=== PATIENT | female | born 1985 | race Caucasian/White ===

== ENCOUNTER 2020-05-26 09:49 | Outpatient (CLI) | payer BC, SELFPAY ==
--- NOTE | 2020-05-26 09:55 | US_ITS ---
WS: [id number] PELVIC ULTRASOUND REASON FOR VISIT: PELVIC PAIN TECHNIQUE: Grayscale and Doppler transabdominal and transvaginal pelvic ultrasound. FINDINGS: No adnexal mass or free fluid in the pelvis. Uterus measures 7.4 cm x 4.5 cm x 3.6 cm, right ovary measures 3.4 cm x 2.6 cm x 2.5 cm, and left ova ry measures 3.0 cm x 2.3 cm x 2.1 cm. There are multiple small ovarian follicular cysts. There is normal blood flow in both ovaries. There are multiple cysts in the cervix the largest of which is a centimeter in diameter. These are an incidental finding. There is some inhomogeneity of the echotexture of the uterus however a definitive leiomyoma is not id entified. Endometrium is echogenic and 6.5 mm in thickness US/US pelvic with transvaginal IMPRESSION: No significant abnormality.
== END 2020-05-26 09:50 | disposition home or self-care (01) ==
LOC: US 09:52
PROVIDERS: PCP Family Medicine; Visit Provider Family Medicine
DX: R10.2 Pelvic and perineal pain (principal)
CPT/HCPCS: 76830; 76856

== ENCOUNTER → 2020-05-29 15:13 | Outpatient (BNVA) | payer BC, SELFPAY | PROVIDERS: PCP Family Medicine; Visit Provider Obstetrics & Gynecology | DX: N93.9 Abnormal uterine and vaginal bleeding, unspecified (principal) | CPT/HCPCS: 82670; 83001; 83002; 84144; 84146 ==

== ENCOUNTER → 2020-06-19 07:44 | Outpatient (BNVA) | payer BC, SELFPAY | PROVIDERS: PCP Family Medicine; Visit Provider Obstetrics & Gynecology | DX: N93.9 Abnormal uterine and vaginal bleeding, unspecified (principal) | CPT/HCPCS: 81025; 84402; 88175; 88305 ==

== ENCOUNTER → 2020-07-24 12:37 | Outpatient (BNVA) | payer BC, SELFPAY | PROVIDERS: PCP Family Medicine; Visit Provider Obstetrics & Gynecology | DX: E28.2 Polycystic ovarian syndrome (principal) | CPT/HCPCS: 81025 ==

== ENCOUNTER → 2020-08-22 15:36 | Outpatient (BNVA) | payer BC, SELFPAY | PROVIDERS: PCP Family Medicine; Visit Provider Obstetrics & Gynecology | DX: Z97.5 Presence of (intrauterine) contraceptive device (principal) | CPT/HCPCS: 76830 ==

== ENCOUNTER → 2021-09-18 15:50 | Outpatient (BNVA) | payer OTHER, BC, SELFPAY | PROVIDERS: PCP Family Medicine; Visit Provider Clinical Nurse Specialist Adult Health | DX: R30.0 Dysuria (principal) | CPT/HCPCS: 81000; 87077; 87086; 87184 ==

== ENCOUNTER 2022-01-05 18:26 | Emergency (ER) | payer OTHER, SELFPAY ==
[2022-01-05 18:37] VITALS: BP 123/86; PULSE 111; RESP 16; TEMP 38.5; O2SAT 95; BMI 39.5
[2022-01-05 20:39] LABS: Rapid Strep A Test Positive (Negative)
[2022-01-05 20:45] LABS: Influenza A by IFA negative (Negative); Influenza B by IFA negative (Negative); SARS Covid-2 Antigen negative (Negative)
[2022-01-05] MEDS: ibuprofen 600 mg Tablet PO (21:12)
--- NOTE | 2022-01-05 21:46 | W.ED.GENADLT ---
HPI - General Adult General: Chief complaint: General Medical Stated complaint: Head pain/congestion, throat swollen Time Seen by Provider: 01/05/22 21:43 History of Present Illness: Patient is a 36-year-old female comes to the ED with sore throat and fever. Symptoms started yesterday. 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 Symptoms are a sore throat, chills, fever and headache. She has not taken any syck-ays-jlavuln medicine for her fever or headache today. Associated symptoms: Reports headache(s); Deny chest pain, dyspnea, nausea, rash, palpitations or vomiting Review of Systems Const: Reports: fever(s) and chills; Denies: fatigue Eyes: Denies: change in vision or eye discomfort ENMT: Reports: throat pain; Denies: odynophagia, nasal discharge or nasal congestion Card: Denies: chest pain, palpitations, edema, swelling of feet/ankles, dyspnea on exertion or orthopnea Resp: Denies: dyspnea, productive cough or non-productive cough GI: Denies: abdominal pain, nausea, vomiting, diarrhea, constipation or hematochezia : Denies: flank pain, dysuria or hematuria Musc: Denies: neck pain, back pain or extremity swelling Skin/Breast: Denies: rash or new lesions Neuro: Reports: headache(s); Denies: numbness in extremities or weakness in extremities PFS ED PFSH: Medical History Mood changes Was placed on medication since January 2020 to help even out her moods and is doing well with this. Does not see a therapist and this is being managed by her primary care provider No pertinent past medical history Denies diabetes, asthma, hypertension, seizures, DVT/PE PCP: Dr. Hayes Surgical History S/P cholecystectomy Laparoscopic procedure in 2011 performed at [facility] [place]. 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 Family History Grandmother Breast cancer paternal, diagnosed in her 50s Diabetes maternal and paternal Father Hypertension Mother Hypertension Hyperlipidemia Thyroid cancer Denies family history of Colon cancer Ovarian cancer Heart disease Uterine cancer Thyroid condition Stroke Physical Exam Const: COMMON NORMALS: patient oriented x3 and alert GENERAL APPEARANCE: cooperative and comfortable HENMT: COMMON NORMALS: normocephalic HEAD & SCALP: normocephalic MOUTH: Normal oral and palatal mucosa present THROAT: uvula midline and posterior oropharynx abnormal erythema and exudates Neck/C-Spine: COMMON NORMALS: supple GENERAL: Yes normal visual inspection Resp: COMMON NORMALS: normal respiratory effort, No retractions, No use of accessory muscles and clear to auscultation bilaterally AUSCULTATION: clear to auscultation bilaterally Cardio: COMMON NORMALS: regular rate, regular rhythm, S1 normal heart sound present, S2 normal heart sound present, No gallops present (Cardio), No clicks present (Cardio), No murmurs present (Cardio) and Peripheral pulses 2+ throughout RATE: regular rate RHYTHM: regular rhythm HEART SOUNDS: S1 normal heart sound present and S2 normal heart sound present PERIPHERAL PULSES: Peripheral pulses 2+ throughout GI: COMMON NORMALS: Normal to inspection, nondistended, normoactive bowel sounds present, Soft to palpation, non-tender and no masses PALPATION: Yes Soft to palpation : COMMON NORMALS: Yes no CVA tenderness BLADDER/KIDNEY EXAM: Yes no CVA tenderness Back/Pelvis: COMMON NORMALS: no CVA tenderness Neuro: COMMON NORMALS: patient oriented x3 SENSORIUM/ORIENTATION: Yes alert GAIT: Yes Normal gait present Skin: GENERAL SKIN EXAM: dry skin Course Vital Signs: Vital signs: Vital Signs Temperature 101.3 F H 01/05/22 18:37 Pulse Rate 111 H 01/05/22 18:37 Respiratory Rate 16 01/05/22 18:37 Blood Pressure 123/86 01/05/22 18:37 Pulse Oximetry 95 01/05/22 18:37 Oxygen Delivery Me thod 01/05/22 18:37 [facility] - General Adult Medical Decision Making Patient is a 36-year-old female comes to the ED with a sore throat, fever and headache. Patient has a temp of 101.3 but the rest of her vitals are stable. Patient appears nontoxic and in no acute distress or pain. She does have some erythema of the posterior oropharynx with some exudates. Strep test was positive. She is given ibuprofen and amoxicillin here in the ED. She was stable for discharge home and told to follow-up with her PCP within the next week for reevaluation. She was sent with a prescription for amoxicillin. Return ED precautions given. Patient understood and agreed with plan. Lab Data I reviewed the patient's lab results. Laboratory Results Influenza Type A Ag negative (Negative) 01/05/22 20:13 Influenza Type B Ag negative (Negative) 01/05/22 20:13 SARS-CoV-2 Ag (Rapid) negative (Negative) 01/05/22 20:13 Group A Strep Rapid Positive (Negative) H 01/05/22 20:13 Discharge Plan Discharge Patient Disposition: Home Clinical Impression: Strep throat Condition: Stable Prescriptions: New amoxicillin 500 mg tablet 500 mg PO BID 10 Days Qty: 20 0RF No Action venlafaxine 37.5 mg capsule,extended release 24hr 37.5 mg PO DAILY Mirena 20 mcg/24 hours (6 yrs) 52 mg intrauterine device 1 device intrauterine .every 5 years Qty: 1 0RF Discharge Orders: Discharge ED (Routine); Ordered 01/05/22 Ordered By: Carlos Fitzpatrick Referrals: Carlos Hayes MD [Primary Care Provider] - Discharge Diet: Regular Discharge Activity: Increase activity as tolerated Patient Instructions: Strep Throat (DC) Activity Restrictions/Additional Instructions: Follow-up with medical provider as directed in the next 5 to 7 days for reevaluation. Take medications as prescribed. Drink plenty fluids and stay hydrated. Take [id number] ibuprofen or Tylenol for any fevers or pain. Return to the ER or your medical provider if condition worsens. Please read and understand discharge instructions. Thank you for choosing [facility] for your healthcare needs today. Please realize this is an emergency room and that we are providing you with a medical screening exam and this may not be complete and all inclusive of all the testing and or work up that you may need to determine your ailment or severity of your illness. It is very important that you follow up as instructed or that you return to the Emergency Department should you have concerns or if your condition changes or worsens in any way. Stand Alone Forms: Work/School Release Coding Level of Care Code ED Supervisor [place] for Fallon Fwjoselin Exam Comprehensive
[2022-01-05] MEDS: amoxicillin 500 mg Capsule PO (21:54)
== END 2022-01-05 22:08 | disposition home or self-care (01) ==
PROVIDERS: Emergency Medicine; Emergency Provider Physician Assistant; PCP Family Medicine
DX: J02.0 Streptococcal pharyngitis (principal); Z20.822 Contact with and (suspected) exposure to COVID-19
CPT/HCPCS: 87426; 87804; 87880; 99283

== ENCOUNTER 2022-05-02 08:29 | Emergency (ER) | payer OTHER, SELFPAY ==
[2022-05-02 08:32] VITALS: BP 132/96; PULSE 86; RESP 14; TEMP 36.4; O2SAT 98; BMI 39.5
--- NOTE | 2022-05-02 08:38 | XR_ITS ---
WS: [id number] Exam: XR chest 1V portable [id number] Date/Time of Exam: 05/02/2022 8:42 AM Reason For Exam: dyspnea/cough No prior exams. Findings: The lungs are clear and fully expanded. Costophrenic angles are sharp. No infiltrates. Bronchovascula r relief appears normal. Cardiac silhouette is unremarkable. Bony elements are intact. XR/XR chest 1V portable [id number] IMPRESSION: Unremarkable chest radiograph.
--- NOTE | 2022-05-02 08:44 | ECG_ITS ---
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 Measurements Intervals [place] Rate: 79 P: 43 TX: 140 QRS: 19 QRSD: 85 T: 29 QT: 380 QTc: 437 Interpretive Statements SINUS RHYTHM No previous ECG available for comparison Electronically Signed On 05-02-2022 22:20:39 [employer]ERMOCOUPLE TE[employer] by Shavonne Talamantes M.D. [id number]
--- NOTE | 2022-05-02 09:09 | ED_ITS ---
HPI - SOB/Dyspnea General: Chief Complaint: Shortness of Breath/Dyspnea Stated Complaint: SOB, abd pain Time Seen by Provider: 05/02/22 08:37 Source: patient Mode of arrival: ambulatory History of Present Illness: HPI Narrative: 36-year-old female presents emergency room complaining of shortness of breath and cough. States her symptoms began 3 days ago progressively worsening since then cough is nonproductive. 2 days ago she was seen in urgent care started on oral prednisone she is still taking that. Mild improvement of her cough since then but with inspiration and coughing the pain in the left lower ribs worsens. She has not been coughing anything up she has not developed any fever no diarrhe a. She has no known history of chronic respiratory illnesses. She has not been started on any beta agonist. MD elicited complaint: shortness of breath Onset (ago): day(s) (3) Timing: constant Severity: mild Exacerbating factors: nothing Relieving factors: nothing Associated symptoms: Reports chest congestion; Deny abdominal pain, chest pain, cough, diaphoresis, dizziness, extremity pain, fever(s), hemoptysis, lightheadedness, myalgias, nausea, orthopnea, palpitations, paresthesias, polydipsia, polyuria, rash, sense of impending doom, syncope or vomiting Treatment prior to arrival: other (Prednisone) Review of Systems Const: Denies: fever(s), chills, fatigue, malaise or diaphoresis ENMT: Denies: throat pain, ear or mastoid pain, nasal discharge or nasal conge stion Card: Denies: chest pain, palpitations, lightheadedness, syncope or orthopnea Resp: Reports: dyspnea, non-productive cough, wheezing and chest congestion; Denies: productive cough or hemoptysis GI: Denies: abdominal pain, nausea or vomiting : Denies: flank pain, difficulty voiding, dysuria, urinary frequency or urinary urgency Musc: Denies: neck pain, back pain or extremity pain Skin/Breast: Denies: rash or pruritus Neuro: Denies: dizziness Endo: Denies: polyuria or polydipsia [facility] ED PFSH: Medical History Mood changes Was placed on medication since January 2020 to help even out her moods and is doing well with this. Does not see a therapist and this is being managed by her primary care provider No pertinent past medical history Denies diabetes, asthma, hypertension, seizures, DVT/PE PCP: Dr. Hayes Surgical History S/P cholecystectomy [place] [facility] [facility] [place] 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 Family History Grandmother Breast cancer paternal, diagnosed in her 50s Diabetes maternal and paternal Father Hypertension Mother Hypertension Hyperlipidemia Thyroid cancer Denies family history of Colon cancer Ovarian cancer Heart disease Uterine cancer Thyroid condition Stroke Physical Exam Const: GENERAL APPEARANCE: cooperative and comfortable ORIENTATION/CONSCIOUSNESS: Yes awake, Yes oriented to person, Yes oriented to place and Yes oriented to time HENMT: COMMON NORMALS: normocephalic, atraumatic and hearing grossly normal bilaterally HEAD & SCALP: normocephalic and atraumatic Chest: OTHER: Chest pain reproducible with deep inspiration cough and to a lesser extent palpation on the left lower chest wall. Resp: COMMON NORMALS: normal respiratory effort, No retractions, No use of accessory muscles and clear to auscultation bilaterally AUSCULTATION: clear to auscultation bilaterally Cardio: COMMON NORMALS: regular rate, regular rhythm and No murmurs present (Cardio) RATE: regular rate RHYTHM: regular rhythm GI: COMMON NORMALS: Soft to palpation and No hepatosplenomegaly present AUSCULTATION: Yes normoactive bowel sounds PALPATION: Yes Soft to palpation, No Tenderness to palpation present (GI), No Guarding due to palpation present (GI) and Yes No hepatosplenomegaly present Extremity: COMMON NORMALS: normal to inspection, capillary refill normal, no clubbing, cyanosis or edema, no calf tenderness and no pedal edema Neuro: SENSORIUM/ORIENTATION: Yes oriented to person, Yes oriented to place and Yes oriented to time Skin: COMMON NORMALS: no rashes or lesions noted GENERAL SKIN EXAM: no rash es or lesions noted Course Vital Signs: Vital signs: Vital Signs Temperature 97.6 F 05/02/22 08:32 Pulse Rate 86 05/02/22 08:32 Respiratory Rate 14 05/02/22 08:32 Blood Pressure 132/96 05/02/22 08:32 Pulse Oximetry 98 05/02/22 08:32 Oxygen Delivery Me thod 05/02/22 08:32 MDM - SOB/Dyspnea Medical Decision Making Labs and imaging reviewed there is no acute infiltrates pneumonia or pneumothorax no evidence of widening mediastinum no abnormalities. No significant abnormalities on labs other than a mild elevation of white count which is likely caused by the steroids. Continue steroids add albuterol supportive cares follow-up as needed return if is further problems Medical Records I reviewed the patient's medical records. Lab Data I reviewed the patient's lab results. 05/02/22 09:10 05/02/22 09:10 Labs/Radiology: Radiology Impressions Chest X-Ray 05/02/22 08:38 IMPRESSION: Unremarkable chest radiograph. Laboratory Results WBC 16.9 10^3/uL (4.0-10.0) H 05/02/22 09:10 RBC 4.78 10^6/uL (4.1-5.3) 05/02/22 09:10 Hgb 13.9 g/dL (11.5-15.3) 05/02/22 09:10 Hct 42.3 % (37.0-47.0) 05/02/22 09:10 MCV 88.5 fl (81-99) 05/02/22 09:10 MCH 29.1 pg (28.0-34.0) 05/02/22 09:10 MCHC 32.9 g/dL (30.0-36.0) 05/02/22 09:10 RDW 13.7 % (12.1-15.1) 05/02/22 09:10 Plt Count 281 10^3/cmm (130-400) 05/02/22 09:10 MPV 10.6 fL (7.4-10.4) H 05/02/22 09:10 Neut % (Auto) 66.7 % 05/02/22 09:10 Lymph % (Auto) 23.9 % 05/02/22 09:10 [place] % (Auto) 6.3 % 05/02/22 09:10 Eos % (Auto) 1.7 % 05/02/22 09:10 Baso % (Auto) 0.4 % 05/02/22 09:10 Neut # (Auto) 11.27 10^3/uL (1.8-7.7) H 05/02/22 09:10 Lymph # (Auto) 4.0 10^3/uL (0.8-4.8) 05/02/22 09:10 [place] # (Auto) 1.1 10^3/uL (0.2-0.9) H 05/02/22 09:10 Eos # (Auto) 0.3 10^3/uL (0.0-0.8) 05/02/22 09:10 Baso # (Auto) 0.1 10^3/uL (0.0-0.1) 05/02/22 09:10 Nucleated RBC % (auto) 0 % 05/02/22 09:10 Nucleated RBCs # 0.0 /100WBC 05/02/22 09:10 Sodium 142 mmol/L (136-145) 05/02/22 09:10 Potassium 3.9 mmol/L (3.5-5.1) 05/02/22 09:10 Chloride 107 mmol/L (98-107) 05/02/22 09:10 Carbon Dioxide 25 mmol/L (22-29) 05/02/22 09:10 Anion Gap 13.9 (5-19) 05/02/22 09:10 BUN 12 mg/dL (6-20) 05/02/22 09:10 Creatinine 0.8 mg/dL (0.5-0.9) 05/02/22 09:10 GFR Calculation 81.6 mL/min (90-130) L 05/02/22 09:10 Glucose 92 mg/dL (65-115) 05/02/22 09:10 Calculated Osmolality 293 mOsm/kg (285-295) 05/02/22 09:10 Calcium 8.4 mg/dL (8.5-10.5) L 05/02/22 09:10 Total Bilirubin 0.2 mg/dL (0.15-1.2) 05/02/22 09:10 AST 14 U/L (0-32) 05/02/22 09:10 ALT 19 U/L (0-33) 05/02/22 09:10 Alkaline Phosphatase 76 U/L (35-105) 05/02/22 09:10 Total Protein 6.7 g/dL (6.6-8.7) 05/02/22 09:10 Albumin 3.2 g/dL (3.5-5.2) L 05/02/22 09:10 Globulin 3.5 g/dL (1.3-4.6) 05/02/22 09:10 Discharge Plan Discharge Patient Disposition: Home Clinical Impression: Viral URI with cough Condition: Stable Prescriptions: New albuterol sulfate 90 mcg/actuation HFA aerosol inhaler 2 inh INHALATION Q4H PRN (Reason: shortness of breath or wheezing) Qty: 18 0RF No Action venlafaxine 37.5 mg capsule,extended release 24hr 37.5 mg PO DAILY Mirena 20 mcg/24 hours (6 yrs) 52 mg intrauterine device 1 device intrauterine .every 5 years Qty: 1 0RF prednisone 20 mg tablet 40 mg PO DAILY 5 Days Qty: 10 0RF fluticasone propionate [Flonase Allergy Relief] 50 mcg/actuation spray,suspension 1 spray intranasal BID Qty: 16 2RF Rx Instructions: administer into each nostril Zyrtec 10 mg capsule 10 mg PO DAILY Qty: 30 2RF Discharge Orders: Discharge ED (Routine); Ordered 05/02/22 Ordered By: Fredi Villatoro Referrals: Carlos Hayes MD [Primary Care Provider] - Discharge Diet: Usual diet Discharge Activity: Increase activity as tolerated Patient Instructions: Opioid Safety, Pain Management Activity Restrictions/Additional Instructions: You are seen today for an upper respiratory infection with cough. Your oxygen sats are normal your chest x-ray did not show any acute infiltrate. Recommend you continue the steroids add albuterol 2 puffs every 4 hours as needed. If symptoms worsen or change recheck with your primary care doctor Coding Level of Care Code ED Vaccine Customer Representative for Fallon Addison
[2022-05-02 09:22] LABS: Basophils # 0.1 10^3/uL (0.0-0.1); Basophils % 0.4 %; Eosinophils # 0.3 10^3/uL (0.0-0.8); Eosinophils % 1.7 %; Hematocrit 42.3 % (37.0-47.0); Hemoglobin 13.9 g/dL (11.5-15.3); Lymphocytes % 23.9 %; Mean Corpuscular HGB Conc 32.9 g/dL (30.0-36.0); Mean Corpuscular Hemoglobin 29.1 pg (28.0-34.0); Mean Corpuscular Volume 88.5 fl (81-99); Mean Platelet Volume 10.6 fL (7.4-10.4); Monocytes # 1.1 10^3/uL (0.2-0.9); Monocytes % 6.3 %; Neutrophils # 11.27 10^3/uL (1.8-7.7); Neutrophils % 66.7 %; Nucleated Red Blood Cells % 0 %; Platelet Count 281 10^3/cmm (130-400); Red Blood Count 4.78 10^6/uL (4.1-5.3); Red Cell Distribution Width 13.7 % (12.1-15.1); White Blood Count 16.9 10^3/uL (4.0-10.0)
[2022-05-02 09:37] LABS: Alanine Aminotransferase 19 U/L (0-33); Albumin Level 3.2 g/dL (3.5-5.2); Alkaline Phosphatase 76 U/L (35-105); Anion Gap 13.9 (5-19); Aspartate Amino Transferase 14 U/L (0-32); Blood Urea Nitrogen 12 mg/dL (6-20); Calcium 8.4 mg/dL (8.5-10.5); Carbon Dioxide 25 mmol/L (22-29); Chloride 107 mmol/L (98-107); Globulin 3.5 g/dL (1.3-4.6); Glomerular Filtration Rate 81.6 mL/min (90-130); Glucose 92 mg/dL (65-115); Osmolality Calculated 293 mOsm/kg (285-295); Potassium 3.9 mmol/L (3.5-5.1); Sodium 142 mmol/L (136-145); Total Bilirubin 0.2 mg/dL (0.15-1.2); Total Protein 6.7 g/dL (6.6-8.7)
== END 2022-05-02 10:40 | disposition home or self-care (01) ==
PROVIDERS: Emergency Provider Family Medicine; PCP Family Medicine
DX: J06.9 Acute upper respiratory infection, unspecified (principal)
CPT/HCPCS: 71045; 80053; 85025; 93005; 99285

== ENCOUNTER → 2022-06-03 13:37 | Outpatient (BNVA) | payer OTHER, SELFPAY | PROVIDERS: PCP Family Medicine; Visit Provider Family Medicine | DX: Z51.81 Encounter for therapeutic drug level monitoring (principal); Z13.220 Encounter for screening for lipoid disorders; J02.0 Streptococcal pharyngitis; R45.86 Emotional lability; E28.2 Polycystic ovarian syndrome; F32.A Depression, unspecified | CPT/HCPCS: 80053; 80061; 85025 ==

== ENCOUNTER → 2022-07-24 15:30 | Outpatient (BNVA) | payer OTHER, SELFPAY | PROVIDERS: PCP Family Medicine; Visit Provider Obstetrics & Gynecology | DX: R10.2 Pelvic and perineal pain (principal) | CPT/HCPCS: 76830 ==

== ENCOUNTER 2022-08-14 12:38 | Observation (INO) | payer OTHER, SELFPAY ==
[2022-08-13 09:33] VITALS: BMI 39.0
--- NOTE | 2022-08-13 09:49 | ANES.PREANE2 ---
Pre-Anesthetic Assessment Height/Weight: Height 1.68 m Weight 109.769 kg Operation Date: 08/14/22 10:05 Proposed Procedures p Total Vaginal Hysterectomy 64183 R10.2 G89.29(Not Applicable) - Mitchel Bynum MD Familial anesthetic complications: None Social No alcohol and No tobacco Exam alert, oriented x 3, clear to auscultation bilaterally and regular rate & rhythm Airway Mallampati: Class III Dentition: full Metabolic Morbid Obesity Anesthetic Plan ASA status: 2 Anesthesia: General Risk of > 500 ml blood loss (7ml/kg in children): No Medications/Allergies Home Medications Medication Instructions Recorded Confirmed Last Taken Type levonorgestrel 21 mcg/24 hours (8 1 device intrauterine .every 5 07/24/20 08/13/22 Unknown Rx yrs) 52 mg intrauterine device years #1 ea (Mirena) venlafaxine 75 mg capsule,extended 75 mg PO DAILY #30 caps 06/03/22 08/13/22 08/12/22 Rx release 24 hr Allergies Allergy/AdvReac Type Severity Reaction Status Date / Time No Known Allergies Allergy Verified 08/13/22 09:29 [facility] Anesthesia Medical History Mood changes Was placed on medication since January 2020 to help even out her moods and is doing well with this. Does not see a therapist and this is being managed by her primary care provider No pertinent past medical history Denies diabetes, asthma, hypertension, seizures, DVT/PE PCP: Dr. Hayes Surgical History S/P cholecystectomy Laparoscopic procedure in 2011 [place] [facility] [place] 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
[2022-08-13 09:51] LABS: OR HCG Qualitative Urine Negative (Negative)
[2022-08-13 10:03] LABS: Basophils # 0.1 10^3/uL (0.0-0.1); Basophils % 0.7 %; Eosinophils # 0.2 10^3/uL (0.0-0.8); Eosinophils % 2.6 %; Hematocrit 42.8 % (37.0-47.0); Hemoglobin 14.5 g/dL (11.5-15.3); Lymphocytes # 2.2 10^3/uL (0.8-4.8); Lymphocytes % 23.4 %; Mean Corpuscular HGB Conc 33.9 g/dL (30.0-36.0); Mean Corpuscular Hemoglobin 29.7 pg (28.0-34.0); Mean Corpuscular Volume 87.5 fl (81-99); Mean Platelet Volume 10.7 fL (7.4-10.4); Monocytes # 0.5 10^3/uL (0.2-0.9); Monocytes % 5.4 %; Neutrophils # 6.32 10^3/uL (1.8-7.7); Neutrophils % 67.6 %; Nucleated Red Blood Cells % 0 %; Platelet Count 322 10^3/cmm (130-400); Red Blood Count 4.89 10^6/uL (4.1-5.3); Red Cell Distribution Width 13.6 % (12.1-15.1); White Blood Count 9.4 10^3/uL (4.0-10.0)
[2022-08-13 10:23] LABS: Alanine Aminotransferase 21 U/L (0-33); Albumin Level 3.6 g/dL (3.5-5.2); Alkaline Phosphatase 80 U/L (35-105); Anion Gap 13.1 (5-19); Aspartate Amino Transferase 16 U/L (0-32); Blood Urea Nitrogen 9 mg/dL (6-20); Calcium 8.4 mg/dL (8.5-10.5); Carbon Dioxide 26 mmol/L (22-29); Chloride 106 mmol/L (98-107); Globulin 3.3 g/dL (1.3-4.6); Glomerular Filtration Rate 113.8 mL/min (90-130); Glucose 96 mg/dL (65-115); Osmolality Calculated 291 mOsm/kg (285-295); Potassium 4.1 mmol/L (3.5-5.1); Sodium 141 mmol/L (136-145); Total Bilirubin 0.3 mg/dL (0.15-1.2); Total Protein 6.9 g/dL (6.6-8.7)
[2022-08-13 10:31] LABS: Add Urine Culture? No; Add Urine Microscopic? YES; Bacteria Urine TRACE /hpf; Bilirubin Urine Neg (Negative); Blood Urine Neg (Negative); Glucose Urine UA Norm (Normal); Ketones Urine Negative (Negative); Leukocyte Esterase Urine Negative (Negative); Nitrate Urine Negative (Negative); Protein Urine Neg (Negative); RBC Urine 0-4 /hpf (0-2); Specific Gravity, Urine 1.025 (1.005-1.030); Urine Appearance SL Hazy (CLEAR); Urine Color Yellow (Yellow); Urobilinogen Urine Norm (Negative); WBC Urine 0-4 /hpf (0-5); pH Urine 5 (5-7)
[2022-08-14] VITALS (15 sets, daily range): BP systolic 93–159; BP diastolic 50–101; PULSE 76–94; RESP 10–18; TEMP 36.2–36.7; O2SAT 94–99
[2022-08-14] MEDS: sodium chloride 0.9% 500 ML IV (08:33)
[2022-08-14] MEDS: sodium chloride 0.9% 1,000 ML 30 ML IV (08:33)
[2022-08-14] MEDS: scopolamine 1.5 Patch 1 PATCH TRANSDERMA (08:33)
--- NOTE | 2022-08-14 08:55 | P.ANESUD_ITS ---
Pre-Anesthetic Update Pre-Anesthetic Assessment: Date of Surgery/Procedure: 08/14/22 Preop Talia gnosis: Chronic pelvic pain, dyspareunia, stress urinary incontinence Proposed Procedure: Operation Date: 08/14/22 10:05 Proposed Procedures p Total Vaginal Hysterectomy 78632 R10.2 G89.29(Not Applicable) - Mitchel Bynum MD Any changes to Pre-Anesthetic Assessment?: No Last Intake: Intake Last Liquid Date 08/13/22 Last Liquid Time 22:30 Last Solid Date 08/13/22 Last Solid Time 22:30 Labs Last 48hrs: Short CBC 08/13/22 Range/Units 09:35 WBC 9.4 (4.0-10.0) 10^3/ uL Hgb 14.5 (11.5-15.3) g/dL Hct 42.8 (37.0-47.0) % MCV 87.5 (81-99) fl Plt Count 322 (130-400) 10^3/c mm Neut % (Auto) 67.6 % Neut # (Auto) 6.32 (1.8-7.7) 10^3/u L BMP 08/13/22 09:35 Sodium 141 Potassium 4.1 Chloride 106 Carbon Dioxide 26 BUN 9 Creatinine 0.6 Glucose 96 Calcium 8.4 L Liver Function 08/13/22 Range/Units 09:35 Total Bilirubin 0.3 (0.15-1.2) mg/dL AST 16 (0-32) U/L ALT 21 (0-33) U/L Alkaline Phosphata se 80 (35-105) U/L Albumin 3.6 (3.5-5.2) g/dL Urine 08/13/22 Range/Units 09:29 Urine Color Yellow (Yellow) Urine Appearance Sl hazy A (CLEAR) Urine pH 5 (5-7) Ur Specific Gravit y 1.025 (1.005-1.030) Urine Protein Neg (Negative) Urine Glucose (UA) Norm (Normal) Urine Ketones Negative (Negative) Urine Nitrate Negative (Negative) Urine Bilirubin Neg (Negative) Ur Leukocyte Margarita ase Negative (Negative) Urine RBC 0-4 H (0-2) /hpf Urine WBC 0-4 H (0-5) /hpf Blood Bank 08/13/22 09:35 Blood Type O Positive Rho(D) Type Positive Antibody Screen Negative Vitals: Temperature 97.1 F L 08/14/22 08:11 Temperature Source Temporal Artery S can 08/14/22 08:11 Pulse Rate 80 08/14/22 08:11 Respiratory Rate 16 08/14/22 08:11 Blood Pressure 159/101 08/14/22 08:11 Blood Pressure Catherine n 120 08/14/22 08:11 Pulse Oximetry 97 08/14/22 08:11 Oxygen Delivery Me thod Room Air 08/14/22 08:24 Exam: Pre-Anes Outpt Exam: alert, oriented x 3, clear to auscultation bilaterally and regular rate & rhythm Cardiac Studies: No Data to Display
--- NOTE | 2022-08-14 10:16 | W.PM.OPSUD ---
Surgery/Procedure H&P Update DATE OF PROCEDURE: August 14, 2022 DATE H&P PERFORMED: 08/12/22 H&P UPDATE INFORMATION: I have reviewed H&P completed within last 30 days, I have examined patient prior to procedure and No changes to prior documentation PREOP DIAGNOSIS: Chronic pelvic pain, dyspareunia, stress urinary incontinence PLANNED PROCEDURE: Operation Date: 08/14/22 10:05 Proposed Procedures p Total Vaginal Hysterectomy 15633 R10.2 G89.29(Not Applicable) - Mitchel Bynum MD
[2022-08-14] MEDS: ceFOXitin 2,000 MG in sodium chloride 0.9% (plus) 50 ML 100 MG IV (10:29)
[2022-08-14] MEDS: lidocaine-epi 2% 20 mL INJ 18 ML INJECTION (11:59)
--- NOTE | 2022-08-14 12:20 | PC.NURSE ---
Pt arrived to PACU, awake, resting comfortably, able to move all extremities. Peripad in place with no drainage noted at this time. Tilley catheter patent and draining. SCD's in place and running.
--- NOTE | 2022-08-14 12:30 | P.OP_ITS ---
Operative Report Date of procedure: August 14, 2022 Pre-op diagnosis: Preop Diagnosis Chronic pelvic pain, dyspareunia, stress urinary incontinence Post-op diagnosis: Same as above Procedure done: Total vaginal hysterectomy. Single incision mid urethral sling. Surgeon: Mitchel Bynum MD Estimated blood loss (mL): 100 IV fluids (mL): 1,200 Urine output (mL): 200 Complications: None Procedure: After informed consent and risks, benefits, indications and alternatives reviewed with the patient was taken to the operating room. The patient was placed in dorsal lithotomy position prepped, and draped in the usual sterile fashion. The pre-procedure timeout verifying the correct patient, procedure, site and side, could not requirements was performed and acknowledge by the OR team. A Tilley catheter was placed. A Bookwalter vaginal retractor was placed into the vagina in usual manner visualize the cervix. Cervix was grasped with a single tooth tenaculum and circumferentially infiltrated with 2% lidocaine with epinephrine. Then cervix was circumferentially incised with bovie and the bladder was dissected off the pubovesical cervical fascia anteriorly with a sponge stick and Metzenbaum scissors. The anterior peritoneal reflection was identified and the anterior cul-de-sac was entered sharply with Metzenbaum scissors. The same procedure was performed posteriorly and a posterior colpotomy was made through the posterior cul-de-sac space without difficulty and the posterior blade of the Bookwalter vaginal retractor was advanced posteriorly into the cul-de-sac. At this time, the left and right uterosacral ligaments were isolated and ligated with 0 Vicryl. The Enseal device was placed over the uterosacral ligaments on either side and was then used in a serial fashion up through the cardinal ligaments bilaterally cross-clamped, cut, and sealed with the Enseal device. Finally, the uterine arteries were cross-clamped, cut, sealed and ligated with the Enseal device. Hemostasis was assured. The broad ligaments were then serially clamped, sealed and cut with the Enseal device on both sides. Excellent hemostasis was visualized. Both cornua were clamped, sealed and cut with the Enseal device. Then the pedicles were then suture ligated with excellent hemostasis. The uterus was excised and submitted for pathologic evaluation. No other abnormalities were noted in the pelvic cavity. Surgi-Mark was applied to all help hemostasis of the edge oozing. The peritoneum was then closed in a pursestring fashion with 0 Vicryl suture. The vaginal cuff angles were closed with [id number] #0 Vicryl suture on both sides and transfixed with the ipsilateral cardinal and uterosacral ligaments. The remainder of the vaginal cuff was closed with #0 Vicryl in a running locked fashion. Then proceeded to perform the single incision mid urethral sling. The anterior vaginal mucosa beneath the midurethra was infiltrated with 0.5% Marcaine with epinephrine. A vertical midline incision was made beneath the midurethra, nearly 1.5 cm length. Careful submucosal dissection was performed bilaterally up to the interior portion of the inferior pubic ramus. The insertion of adductor longus tendon on the patient?s pubic ramus was identified as reference land sera. Palpated the notch along the internal edge of ischi opubic ramus where the adductor longus tendon and the inferior pubic ramus meet. The Altis single incision sling (SIS) was selected. Then the needle of the SIS inserted aiming at the location of this notch. One of the integrated self- fixating tips place onto the needle by sliding it over the end of the needle. The needle/sling assembly was inserted toward the location of identified reference notch making sure that the flat of the handle is perpendicular to the desired path. The needle was tracked along the posterior surface of the ischiopubic ramus until the midline sera on the mesh is approximately at the midline position under the urethra. The needle was removed and the same was repeated on the contralateral side until the appropriate sling tension under the urethra was achieved ensuring that the mesh lays flat. The needle was removed and vaginal incision was closed in a running interlocking fashion with 2-0 Vicryl. Then the Tilley catheter was removed and cystoscope was inserted. The bladder was filled with sterile water. Complete evaluation of the bladder mucosa was performed noting no lacerations, dimpling, tears, bleeding of the mucosa or muscular layers. Both ureteral orifices were identified. Prompt excretion of urine from both ureteral orifices was noted. Cystoscope was withdrawn. Tilley catheter was then placed yielding clear francesco urine. The patient was taken out of dorsal lithotomy position and awakened from the general anesthesia. The patient tolerated the procedure well and was taken to the PACU recovery room in a stable condition. Sponge, lap, needle and instruments counts were correct x3.
[2022-08-14] MEDS: ketorolac 30 mg/mL INJ IVP ×2 (13:06→19:33)
[2022-08-14] MEDS: HYDROcodone-acetaminophen 5-325 mg Tablet PO ×2 (13:06→21:17)
[2022-08-14] MEDS: ondansetron 2 mg/ML SDV 2 mL 4 MG IVP (13:06)
--- NOTE | 2022-08-14 17:00 | ANE.PACU2 ---
Inpatient post-anesthesia follow up: Airway intact: Yes Vital signs: Temperature 98.2 F Pulse Rate 75 Respiratory Rate 16 Blood Pressure 105/86 Pulse Oximetry 97 Oxygen Delivery Me thod Room Air Oxygen Flow Rate 2 Fraction of Inspir ed Oxygen Hydration adequate: Yes Nausea and vomiting: No Pain level: 2 Mental status: Baseline
[2022-08-14] MEDS: acetaminophen 325 mg Tablet 650 MG PO (17:48)
[2022-08-14] MEDS: docusate sodium 100 mg Capsule PO (17:49)
[2022-08-14] MEDS: dextrose 5%-lactated ringers 1,000 ML 125 ML IV (18:07)
[2022-08-14] MEDS: simethicone 80 mg Chew PO (19:33)
[2022-08-15] MEDS: dextrose 5%-lactated ringers 1,000 ML 125 ML IV (02:07)
[2022-08-15] MEDS: ketorolac 30 mg/mL INJ IVP (02:07)
[2022-08-15 04:00] VITALS: BP 104/64; PULSE 79; RESP 16; TEMP 36.8; O2SAT 97
[2022-08-15 05:52] LABS: Hematocrit 35.4 % (37.0-47.0); Hemoglobin 12.1 g/dL (11.5-15.3); Mean Corpuscular HGB Conc 34.2 g/dL (30.0-36.0); Mean Corpuscular Hemoglobin 30.1 pg (28.0-34.0); Mean Corpuscular Volume 88.1 fl (81-99); Mean Platelet Volume 10.8 fL (7.4-10.4); Platelet Count 288 10^3/cmm (130-400); Red Blood Count 4.02 10^6/uL (4.1-5.3); Red Cell Distribution Width 13.6 % (12.1-15.1); White Blood Count 21.2 10^3/uL (4.0-10.0)
[2022-08-15] MEDS: HYDROcodone-acetaminophen 5-325 mg Tablet PO (05:52)
[2022-08-15] MEDS: simethicone 80 mg Chew PO (05:52)
--- NOTE | 2022-08-15 06:54 | PC.NURSE ---
Patient voided 100 mL in standard toilet. Post Void Residual scanned 37mL.
[2022-08-15] MEDS: docusate sodium 100 mg Capsule PO (07:04)
--- NOTE | 2022-08-15 09:00 | PC.NURSE ---
this nurse attempted to give IV toradol at 0851, this nurse vanessa up the medication into 3mL syringe and then with saline flush, flushed the IV with the saline, then attempted to give toradol, IV infiltrated. this nurse wasted the toradol into the biohazard bin in the pt room. IV then removed from pt and put into the biohazard box.
--- NOTE | 2022-08-15 09:09 | PM.OBGYDC ---
Discharge Providers [employer] Date of Admission: 08/14/22 12:38 Date of Discharge: 08/15/22 Attending Provider at Admission: Mitchel Bynum MD Attending Provider at Discharge: Mitchel Bynum MD Primary [employer]: Mitchel Bynum MD Primary Care Provider: Carlos Hayes MD Diagnoses at Discharge Discharge Diagnosis (1) Status post vaginal hysterectomy: Status: Acute Reason for Visit Reason for Visit: G89.29 Brief History: Ms. Altamirano is a 36 year old with a history of chronic pelvic pain, dysmenorrhea, and stress urinary incontinence. Hospital Course Hospital Course Ms. Altamirano is a 36 year old , admitted for planned total vaginal hysterectomy and single incision mid urethral sling. The procedures were performed without complication. Overnight observation uneventful. She is afebrile and hemodynamically stable postoperative day 1. PVR within normal limits. Tolerating diet well. Ambulating without difficulty. Patient was counseled regarding pelvic rest for 6 weeks (no sex, no tampons, no vaginal douches). Return to the emergency room if any fever, increased bleeding or pain. Physical Exam Narrative: GA: Alert and oriented ?3. HEENT: WNL. Heart: Regular rate and rhythm. Lungs: Clear to auscultation bilaterally. Abdomen: Bowel sounds present, nontender. 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 Extremities: No edema, no cyanosis, no calves pain. Urinary Catheter Management: Tilley: Cath Placed During This Visit: yes, but has since been removed by the nurse Reason for Continuing Indwelling Catheter: Decision to DC Catheter Urinary Catheter Date of Insertion: 08/14/22 Urinary Catheter Time of Insertion: 10:52 Date Urinary Catheter Removed: 08/15/22 Time Urinary Catheter Discontinued: 05:58 History History History 1 Term 1 0 Miscarriages/Ectopic 0 Living Children 1 Discharge Data Studies Completed and Pending Pending at discharge Category Date Time Status Pathology: Surgical [PTH] Routine Pth 08/14/22 11:46 Received Laboratory Results WBC 21.2 10^3/uL (4.0-10.0) H 08/15/22 05:30 RBC 4.02 10^6/uL (4.1-5.3) L 08/15/22 05:30 Hgb 12.1 g/dL (11.5-15.3) 08/15/22 05:30 Hct 35.4 % (37.0-47.0) L 08/15/22 05:30 MCV 88.1 fl (81-99) 08/15/22 05:30 MCH 30.1 pg (28.0-34.0) 08/15/22 05:30 MCHC 34.2 g/dL (30.0-36.0) 08/15/22 05:30 RDW 13.6 % (12.1-15.1) 08/15/22 05:30 Plt Count 288 10^3/cmm (130-400) 08/15/22 05:30 MPV 10.8 fL (7.4-10.4) H 08/15/22 05:30 Neut % (Auto) 67.6 % 08/13/22 09:35 Lymph % (Auto) 23.4 % 08/13/22 09:35 Kane % (Auto) 5.4 % 08/13/22 09:35 Eos % (Auto) 2.6 % 08/13/22 09:35 Baso % (Auto) 0.7 % 08/13/22 09:35 Neut # (Auto) 6.32 10^3/uL (1.8-7.7) 08/13/22 09:35 Lymph # (Auto) 2.2 10^3/uL (0.8-4.8) 08/13/22 09:35 Kane # (Auto) 0.5 10^3/uL (0.2-0.9) 08/13/22 09:35 Eos # (Auto) 0.2 10^3/uL (0.0-0.8) 08/13/22 09:35 Baso # (Auto) 0.1 10^3/uL (0.0-0.1) 08/13/22 09:35 Nucleated RBC % (auto) 0 % 08/13/22 09:35 Nucleated RBCs # 0.0 /100WBC 08/13/22 09:35 Sodium 141 mmol/L (136-145) 08/13/22 09:35 Potassium 4.1 mmol/L (3.5-5.1) 08/13/22 09:35 Chloride 106 mmol/L (98-107) 08/13/22 09:35 Carbon Dioxide 26 mmol/L (22-29) 08/13/22 09:35 Anion Gap 13.1 (5-19) 08/13/22 09:35 BUN 9 mg/dL (6-20) 08/13/22 09:35 Creatinine 0.6 mg/dL (0.5-0.9) 08/13/22 09:35 GFR Calculation 113.8 mL/min (90-130) 08/13/22 09:35 Glucose 96 mg/dL (65-115) 08/13/22 09:35 Calculated Osmolality 291 mOsm/kg (285-295) 08/13/22 09:35 Calcium 8.4 mg/dL (8.5-10.5) L 08/13/22 09:35 Total Bilirubin 0.3 mg/dL (0.15-1.2) 08/13/22 09:35 AST 16 U/L (0-32) 08/13/22 09:35 ALT 21 U/L (0-33) 08/13/22 09:35 Alkaline Phosphatase 80 U/L (35-105) 08/13/22 09:35 Total Protein 6.9 g/dL (6.6-8.7) 08/13/22 09:35 Albumin 3.6 g/dL (3.5-5.2) 08/13/22 09:35 Globulin 3.3 g/dL (1.3-4.6) 08/13/22 09:35 Urine Color Yellow (Yellow) 08/13/22 09:29 Urine Appearance Sl hazy (CLEAR) A 08/13/22 09:29 Urine pH 5 (5-7) 08/13/22 09:29 Ur Specific [place] 1.025 (1.005-1.030) 08/13/22 09:29 Urine Protein Neg (Negative) 08/13/22 09:29 Urine Glucose (UA) Norm (Normal) 08/13/22 09:29 Urine Ketones Negative (Negative) 08/13/22 09:29 Urine Blood Neg (Negative) 08/13/22 09:29 Urine Nitrate Negative (Negative) 08/13/22 09:29 Urine Bilirubin Neg (Negative) 08/13/22 09:29 Urine Urobilinogen Norm mg/dL (Negative) 08/13/22 09:29 Ur Leukocyte Esterase Negative (Negative) 08/13/22 09:29 Urine RBC 0-4 /hpf (0-2) H 08/13/22 09:29 Urine WBC 0-4 /hpf (0-5) H 08/13/22 09:29 Ur Squamous Epith Cells 5-10 /hpf (0-5) H 08/13/22 09:29 Amorphous Sediment Not Reportable 08/13/22 09:29 Urine Bacteria Trace /hpf (NONE) 08/13/22 09:29 Urine HCG, Qual Negative (Negative) 08/13/22 09:46 Blood Type O Positive 08/13/22 09:35 Rho(D) Type Positive 08/13/22 09:35 Antibody Screen Negative 08/13/22 09:35 Vitals Last Vital Signs Temp 98.2 F 08/15/22 04:00 Pulse 79 08/15/22 04:00 Resp 16 08/15/22 04:00 BP 104/64 08/15/22 04:00 Pulse Ox 97 08/15/22 04:00 O2 Del Method Room Air 08/15/22 04:00 O2 Flow Rate 2 08/14/22 12:25 Discharge Plan Discharge Patient Disposition: Home Condition: Stable Prescriptions: New hydrocodone-acetaminophen 5-325 mg tablet 1 tab PO Q4H PRN (Reason: pain) Qty: 20 0RF acetaminophen 325 mg capsule 325 mg PO Q4H PRN (Reason: fever or pain) Qty: 60 0RF docusate sodium [Colace] 100 mg capsule 100 mg PO BID Qty: 60 0RF ibuprofen 800 mg tablet 800 mg PO TID PRN (Reason: pain) Qty: 60 0RF Continued venlafaxine 75 mg capsule,extended release 24hr 75 mg PO DAILY Qty: 30 6RF Discontinued Mirena 20 mcg/24 hours (6 yrs) 52 mg intrauterine device 1 device intrauterine .every 5 years Qty: 1 0RF Discharge Orders: Discharge Order (Routine); Ordered 08/15/22 Ordered By: Mitchel Bynum Referrals: Mitchel Bynum MD [Physician] - 2 weeks (Your follow up appointment is 08/27/2022 @ 1:30 p.m. with ) Patient Instructions: Hydrocodone/Acetaminophen (By mouth), Bladder Sling for Women (GEN), Vaginal Hysterectomy (GEN), Opioid Safety Activity Restrictions/Additional Instructions: 1. Please call [facility] on next working day to make your post-operative appointment in 2 weeks. 2. Please stay home until you come back to the clinic on first post-hospatilization check up. 3. Please follow instructions on your medications CAREFULLY. 4. If you have abdominal incision, do not cover it unless dressing is necessary because of drainage. OK to shower, but avoid bath. Leave steri-strips until they fall off. If they are still on one week after surgery, you may remove them. 5. If you had vaginal surgery or vaginal repair, Dr. Bynum may instruct you to take SITZ bath. 6. Yellow, blood tinged odorous vaginal discharge is usually normal after hysterectomy or vaginal surgeries. 7. No SEXUAL INTERCOURSE, tampons, or douches until you are completely released from the post-operative care. 8. Avoid constipation by eating right and maybe using some Metamucil or Milk of Magnesia. 9. All prescription refills are given during the working hours. Please do no wait till it runs out. Call the clinic at [phone] before your medication runs out. The clinic will get in touch with your doctor to prescribe medications if necessary. 10. Please remain within 40 mile radius from our hospital because emergencies do happen now and then during the post-operative period. 11. If you have stairs at home, take one step at a time slowly and minimize the number of trips. It helps to stay in one floor for the next few days. No lifting except what you can lift by one hand until you are released from the post-operative care. 12. Driving is discouraged until you are well healed. It may be 3-4 weeks before you feel strong enough to drive. You should be able to turn and look through the rear window without pain and you should be able to push the brake pedal very hard without pain before you drive. No fast rules, but SAFETY should be your primary concern. DO NOT drive if you are on sedating medications such as narcotics. 13. Call the clinic (during working hours) to make urgent appointment or go to the Emergency room, if any of the following occurs: i. Vaginal bleeding becomes heavy, more than a period. ii. Incision becomes red and sore, or drains pus. iii. Your TEMPERATURE is over 100.4F or you have chill. iv. IV site becomes red and swollen (a little ``knot?? is usually OK) v. Persistent nausea and vomiting vi. Persistent constipation or diarrhea vii. Rash or allergic reaction to medications. Discharge Attestations [employer] Time Spent in Discharge Care*: greater than 30 min Coding Level of Care Code Acute Code for Chg Fwd Diagnoses Status post vaginal hysterectomy Z90.710
[2022-08-15 10:15] VITALS: BP 105/86; PULSE 75; RESP 16; TEMP 36.8; O2SAT 97
== END 2022-08-15 10:16 | disposition home or self-care (01) ==
LOC: OBGYN 12:39
PROVIDERS: Admitting Provider Obstetrics & Gynecology; PCP Family Medicine; Visit Provider Obstetrics & Gynecology
PROC: (CPT 58260; principal; 2022-08-14 09:55)
PROC: (CPT 57288; 2022-08-14 09:55)
DX: R10.2 Pelvic and perineal pain (principal); G89.29 Other chronic pain; N39.3 Stress incontinence (female) (male); E66.01 Morbid (severe) obesity due to excess calories; Z68.39 Body mass index [BMI] 39.0-39.9, adult
CPT/HCPCS: 58260; 36415; 80053; 81001; 81025; 84703; 85025; 85027; 86850; 86900; 88307; 96374; 96376; C1713; G0378; J0694; J1100; J1170; J1200; J1885; J2250; J2405; J2704; J2710; J3010; J3490; J7030; J7040; J7121

== ENCOUNTER → 2022-10-14 12:59 | Outpatient (BNVA) | payer OTHER, SELFPAY | PROVIDERS: PCP Family Medicine; Visit Provider Family Medicine | DX: E03.9 Hypothyroidism, unspecified (principal) | CPT/HCPCS: 84439; 84443 ==

== ENCOUNTER 2023-01-15 15:43 | Outpatient (CLI) | payer OTHER, SELFPAY ==
--- NOTE | 2023-01-15 15:52 | XR_ITS ---
WS: [id number] Sacrum and coccyx, 3 views, 01/15/2023 Clinical Data: Sacral pain Comparison: None. Findings: No fractures or dislocations are seen. The SI joints and pubic symphysis are unremarkable. No bone de struction or erosion is seen. Impression: Negative sacrum and coccyx.
--- NOTE | 2023-01-15 15:52 | XR_ITS ---
WS: [id number] Lumbar spine, 7 views including AP, L5-S1 spot, both obliques, lateral views in flexion, extension an d neutral position, 01/15/2023 Clinical Data: Lumbar radiculopathy Comparison: None. Findings: No compression fractures or subluxation is seen. No disc space narrowing is seen. The transverse proc esses and SI joints are normal. There is bilateral L5-S1 spondylolysis without spondylolisthesis. On flexion and extension there is n o limitation of motion or subluxation. There is a slight dextroscoliosis. There are clips in the righ t upper quadrant from a cholecystectomy. There is a calcification overlying the left kidney. Impression: 1. Slight dextroscoliosis. 2. Bilateral L5-S1 spondylolysis without spondylolisthesis. 3. No limitation of motion or subluxation on flexion or extension.
== END 2023-01-15 15:44 | disposition home or self-care (01) ==
PROVIDERS: PCP Family Medicine; Visit Provider Family Medicine
DX: M54.16 Radiculopathy, lumbar region (principal); M43.07 Spondylolysis, lumbosacral region; M53.3 Sacrococcygeal disorders, not elsewhere classified
CPT/HCPCS: 72114; 72220

== ENCOUNTER 2023-02-24 17:40 | Emergency (ER) | payer OTHER, SELFPAY ==
[2023-02-24 17:44] VITALS: BP 137/90; PULSE 69; RESP 14; TEMP 36.8; O2SAT 100; BMI 38.7
--- NOTE | 2023-02-24 17:47 | CTR_ITS ---
PROCEDURE INFORMATION: Exam: CT Neck With Contrast Exam date and time: 02/24/2023 6:27 PM Age: 37 years old Clinical indication: Neck pain; Patient HX: Left sided neck and mouth pain; Additional info: Swelling TECHNIQUE: Imaging protocol: Computed tomography of the neck with contrast. Radiation optimization: All CT scans at this facility use at least one of these dose optimization techniques: automated exposure control; mA and/or kV adjustment per patient size (includes targeted exams where dose is matched to clinical indication); or iterative reconstruction. Contrast material: OMNI 350; Contrast volume: 80 ml; Contrast route: INTRAVENOUS (IV); REPORTING DATA: Count of CT and Cardiac NM exams in prior 12 months: This patient has received 0 known CTs and 0 known cardiac nuclear medicine studies in the 12 months prior to the current study. COMPARISON: CR XR chest 1V portable [id number] 05/02/2022 8:49 AM RADIATION DOSE METRICS: Total DLP (mGy-cm): 323.84 FINDINGS: Pharynx: Unremarkable. No significant tonsillar enlargement. Larynx: Unremarkable. Epiglottis is normal. Prevertebral and retropharyngeal spaces: Unremarkable. Salivary glands: Normal. Glands are normal in size. Thyroid: Normal. No enlarged or calcified nodules. Lymph nodes: Unremarkable. No lymphadenopathy. Trachea: Visualized trachea is unremarkable. Lungs: Unremarkable as visualized. Bones/joints: Unremarkable. No acute fracture. Soft tissues: Unremarkable. No significant soft tissue swelling. CT/CT neck w con* [id number] IMPRESSION: No acute findings.
--- NOTE | 2023-02-24 17:56 | ED_ITS ---
HPI - Dental/Oral 2 General: Chief complaint: Dental/Oral Stated complaint: left sided facial pain Time Seen by Provider: 02/24/23 17:47 Source: patient Mode of arrival: ambulatory Limitations: no limitations History of Present Illness: 37-year-old female states that she has h ad left-sided neck pain over the last days she has had some slight ear pain as well. States feels like left side of her neck is swollen he was seen in urgent care and sent here for CT scan for concern of Quinn angina. She has no difficulty swallowing denies any fevers. Associated symptoms: Reports ear or mastoid pain; Denies fever(s) Review of Systems 2 Const: Denies: fever(s), chills, body aches or change in appetite ENMT: Reports: ear or mastoid pain; Denies: throat pain or dental pain Card: Denies: chest pain Resp: Denies: dyspnea GI: Denies: abdominal pain, nausea, vomiting or diarrhea Musc: Reports: neck pain; Denies: back pain Skin/Breast: Denies: rash Neuro: Denies: headache(s) PFSH ED 2 PFSH: Medical History Mood changes Was placed on medication since January 2020 to help even out her moods and is doing well with this. Does not see a therapist and this is being managed by her primary care provider No pertinent past medical history Denies diabetes, asthma, hypertension, seizures, DVT/PE PCP: Dr. Hayes Surgical History Hx of hysterectomy 08/2022 - Cervix removed - Bladder sling done at the same time. S/P cholecystectomy [place] [facility] [place] 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 Family History Grandmother Breast cancer paternal, diagnosed in her 50s Diabetes maternal and paternal Father Hypertension Mother Hypertension Hyperlipidemia Thyroid cancer Denies family history of Colon cancer Ovarian cancer Heart disease Uterine cancer Thyroid disease Stroke Social History Smoking and tobacco/nicotine status: never used tobacco/nicotine Alcohol intake: never Substance/Drug Use: never Physical Exam 2 Const: COMMON NORMALS: no acute distress, patient oriented x3 and healthy appearing HENMT: COMMON NORMALS: normocephalic and atraumatic HEAD & SCALP: n ormocephalic and atraumatic TYMPANIC MEMBRANE: TM normal on the left O THER: Slight tenderness over left neck no swelling in submandibular space no tongue swelling no difficulty handling her secretions Neck/C-Spine: COMMON NORMALS: full ROM and supple Chest: COMMONS NORMALS: normal inspection of the chest Resp: COMMON NORMALS: normal respiratory effort Cardio: COMMON NORMALS: regular rate RATE: regular rate Extremity: COMMON NORMALS: normal to inspection and full ROM Neuro: COMMON NORMALS: patient oriented x3, moves all extremities and no focal motor deficits Psych: COMMON NORMALS: mental status grossly normal, Normal thought process present and cooperative THOUGHT PROCESS: Normal thought process present Skin: COMMON NORMALS: no rashes or lesions noted and no wounds GENERAL SKIN EXAM: no rashes or lesions noted Course 2 Vital Signs: Vital signs: Vital Signs Temperature 98.3 F 02/24/23 17:44 Pulse Rate 69 02/24/23 17:44 Respiratory Rate 14 02/24/23 17:44 Blood Pressure 137/90 02/24/23 17:44 Pulse Oximetry 100 02/24/23 17:44 Oxygen Delivery Me thod Room Air 02/24/23 17:44 MDM - Dental/Oral Medical Decision Making Patient presents here with left neck pain is mainly left jaw pain she had pain over TMJ with opening her mouth likely TMJ. CT showed no signs of abscess lymph nodes or swelling we will place her on Naprosyn she is to get a mouthguard she is stable for discharge Medical Records I reviewed the patient's medical records. Lab Data I reviewed the patient's lab results. 02/24/23 18:00 02/24/23 18:[address] 02/24/23 17:47 IMPRESSION: No acute findings. Laboratory Results WBC 10.01 10^3/uL (3.29-11.43) 02/24/23 18:00 RBC 4.39 10^6/uL (3.85-5.65) 02/24/23 18:00 Hgb 13.40 g/dL (11.27-16.99) 02/24/23 18:00 Hct 38.6 % (36-47) 02/24/23 18:00 MCV 87.9 fl (85-98) 02/24/23 18:00 MCH 30.5 pg (27-33) 02/24/23 18:00 MCHC 34.7 g/dL (30-55) 02/24/23 18:00 RDW 14.0 % (12.1-15.1) 02/24/23 18:00 Plt Count 304 10^3/cmm (157-399) 02/24/23 18:00 MPV 10.7 fL (7.4-10.4) H 02/24/23 18:00 Neut % (Auto) 68.1 % 02/24/23 18:00 Lymph % (Auto) 20.5 % 02/24/23 18:00 Alfalfa % (Auto) 6.2 % 02/24/23 18:00 Eos % (Auto) 3.8 % 02/24/23 18:00 Baso % (Auto) 0.9 % 02/24/23 18:00 Neut # (Auto) 6.82 10^3/uL (1.8-7.7) 02/24/23 18:00 Lymph # (Auto) 2.1 10^3/uL (0.8-4.8) 02/24/23 18:00 Alfalfa # (Auto) 0.6 10^3/uL (0.2-0.9) 02/24/23 18:00 Eos # (Auto) 0.4 10^3/uL (0.0-0.8) 02/24/23 18:00 Baso # (Auto) 0.1 10^3/uL (0.0-0.1) 02/24/23 18:00 Nucleated RBC % (auto) 0 % 02/24/23 18:00 Nucleated RBCs # 0.0 /100WBC 02/24/23 18:00 Sodium 139 mmol/L (136-145) 02/24/23 18:00 Potassium 3.9 mmol/L (3.5-5.1) 02/24/23 18:00 Chloride 105 mmol/L (98-107) 02/24/23 18:00 Carbon Dioxide 24 mmol/L (22-29) 02/24/23 18:00 Anion Gap 13.9 (5-19) 02/24/23 18:00 BUN 8 mg/dL (6-20) 02/24/23 18:00 Creatinine 0.8 mg/dL (0.5-0.9) 02/24/23 18:00 GFR Calculation 81.2 mL/min (90-130) L 02/24/23 18:00 Glucose 94 mg/dL (65-115) 02/24/23 18:00 Calculated Osmolality 286 mOsm/kg (285-295) 02/24/23 18:00 Calcium 8.6 mg/dL (8.5-10.5) 02/24/23 18:00 Total Bilirubin 0.2 mg/dL (0.15-1.2) 02/24/23 18:00 AST 15 U/L (0-32) 02/24/23 18:00 ALT 16 U/L (0-33) 02/24/23 18:00 Alkaline Phosphatase 81 U/L (35-105) 02/24/23 18:00 Total Protein 7.0 g/dL (6.6-8.7) 02/24/23 18:00 Albumin 3.5 g/dL (3.5-5.2) 02/24/23 18:00 Globulin 3.5 g/dL (1.3-4.6) 02/24/23 18:00 All radiology interpretation(s) finalized by discharge Discharge Plan Discharge Patient Disposition: Home Clinical Impression: TMJ arthralgia Qualifiers: Laterality: left Qualified Code(s): M26.622 - Arthralgia of left temporomandibular joint Condition: Stable Prescriptions: New Naprosyn 500 mg tablet 500 mg PO BID PRN (Reason: pain) Qty: 20 0RF Discharge Orders: Discharge ED (Routine); Ordered 02/24/23 Ordered By: Flavia Cheung Referrals: Carlos Hayes MD [Primary Care Provider] - 1-3 days Discharge Diet: Advance as tolerated Discharge Activity: Resume usual activity Patient Instructions: Temporomandibular Disorder (ED) Coding Level of Care Code ED Medical Doctor for Fallon Addison
[2023-02-24 18:09] LABS: Basophils # 0.1 10^3/uL (0.0-0.1); Basophils % 0.9 %; Eosinophils # 0.4 10^3/uL (0.0-0.8); Eosinophils % 3.8 %; Hematocrit 38.6 % (36-47); Lymphocytes # 2.1 10^3/uL (0.8-4.8); Lymphocytes % 20.5 %; Mean Corpuscular HGB Conc 34.7 g/dL (30-55); Mean Corpuscular Hemoglobin 30.5 pg (27-33); Mean Corpuscular Volume 87.9 fl (85-98); Mean Platelet Volume 10.7 fL (7.4-10.4); Monocytes # 0.6 10^3/uL (0.2-0.9); Monocytes % 6.2 %; Neutrophils # 6.82 10^3/uL (1.8-7.7); Neutrophils % 68.1 %; Nucleated Red Blood Cells % 0 %; Platelet Count 304 10^3/cmm (157-399); Red Blood Count 4.39 10^6/uL (3.85-5.65); White Blood Count 10.01 10^3/uL (3.29-11.43)
[2023-02-24] MEDS: iohexol 350 mg/mL 500 mL Btl (per mL) IV (18:33)
[2023-02-24 18:38] LABS: Alanine Aminotransferase 16 U/L (0-33); Albumin Level 3.5 g/dL (3.5-5.2); Alkaline Phosphatase 81 U/L (35-105); Anion Gap 13.9 (5-19); Aspartate Amino Transferase 15 U/L (0-32); Blood Urea Nitrogen 8 mg/dL (6-20); Calcium 8.6 mg/dL (8.5-10.5); Carbon Dioxide 24 mmol/L (22-29); Chloride 105 mmol/L (98-107); Creatinine Clr Calc Pharmacy 121.4346; Globulin 3.5 g/dL (1.3-4.6); Glomerular Filtration Rate 81.2 mL/min (90-130); Glucose 94 mg/dL (65-115); Osmolality Calculated 286 mOsm/kg (285-295); Potassium 3.9 mmol/L (3.5-5.1); Sodium 139 mmol/L (136-145); Total Bilirubin 0.2 mg/dL (0.15-1.2)
== END 2023-02-24 19:28 | disposition home or self-care (01) ==
PROVIDERS: Emergency Provider Emergency Medicine; PCP Family Medicine
DX: M26.622 Arthralgia of left temporomandibular joint (principal)
CPT/HCPCS: 70491; 80053; 85025; 99285; Q9967

== ENCOUNTER 2023-05-19 09:20 | Emergency (ER) | payer OTHER, SELFPAY ==
[2023-05-19 09:27] VITALS: BP 141/95; PULSE 73; RESP 16; TEMP 36.6; O2SAT 100; BMI 38.7
[2023-05-19 09:29] VITALS: BP 119/66; PULSE 83; RESP 16; O2SAT 94
[2023-05-19] MEDS: sodium chloride 0.9% 1,000 ML 999 ML IV (09:32)
--- NOTE | 2023-05-19 09:32 | ED_ITS ---
HPI - Abdominal Pain 2 General: Chief Complaint: Abdominal Pain Stated Complaint: abd pain left side Time Seen by Provider: 05/19/23 09:25 Source: patient Mode of arrival: ambulatory History of Present Illness: 37-year-old female presents emergency ro om complaining of intermittent left flank pain radiating down into the groin. She has not noticed any gross hematuria. ReVia overnight. She will get waves and spasms of pain states is extremely severe. She has previously had a hysterectomy. She denies any gross hematuria no dysuria urgency or frequency no hematochezia or melena. With the severe waves of pain she will get nauseous but has not vomited there is no history of kidney stones MD elicited complaint: abdominal pain Onset (ago): hour(s) Pain Consistency: intermittent Location: L flank Severity: severe Quality: sharp Radiation: LLQ Exacerbating factors: nothing Relieving factors: nothing Associated Symptoms: Reports nausea and poor appetite; Denies anorexia, belching, bloating, change in bowel habits, change in stool character, chills, coffee ground emesis, constipation, GI cramping, diarrhea, dyspepsia, dysuria, excessive flatus, fever(s), heartburn, hematochezia, hematuria, hematemesis, fecal incontinence, loose stools, melena, syncope and vomiting Review of Systems 2 Const: Denies: fever(s) or chills Card: Denies: chest pain or syncope Resp: Denies: dyspnea GI: Reports: nausea; Denies: abdominal pain, vomiting, hematemesis, coffee ground emesis, heartburn, diarrhea, constipation, bloating, GI cramping, belching, excessive flatus, fecal incontinence, change in bowel habits, change in stool character, hematochezia or melena : Reports: flank pain; Denies: dysuria, urinary frequency, urinary urgency or hematuria Musc: Denies: neck pain or back pain Skin/Breast: Denies: rash PFSH ED 2 PFSH: Medical History Mood changes Was placed on medication since January 2020 to help even out her moods and is doing well with this. Does not see a therapist and this is being managed by her primary care provider No pertinent past medical history Denies diabetes, asthma, hypertension, seizures, DVT/PE PCP: Dr. Hayes Surgical History Hx of hysterectomy 08/2022 - Cervix removed - Bladder sling done at the same time. S/P cholecystectomy Laparoscopic procedure in 2011 performed at [facility] [place] 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 Family History Grandmother Breast cancer paternal, diagnosed in her 50s Diabetes maternal and paternal Father Hypertension Mother Hypertension Hyperlipidemia Thyroid cancer Denies family history of Colon cancer Ovarian cancer Heart disease Uterine cancer Thyroid disease Stroke Social History Smoking and tobacco/nicotine status: never used tobacco/nicotine Alcohol intake: never Substance/Drug Use: never Physical Exam 2 Const: GENERAL APPEARANCE: cooperative ORIENTATION/CONSCIOUSNESS: Yes awake, Yes oriented to person, Yes oriented to place and Yes oriented to time HENMT: COMMON NORMALS: normocephalic, atraumatic and hearing grossly normal bilaterally HEAD & SCALP: normocephalic and atraumatic Resp: COMMON NORMALS: normal respiratory effort, No retractions, No use of accessory muscles and clear to auscultation bilaterally AUSCULTATION: clear to auscultation bilaterally Cardio: COMMON NORMALS: regular rate, regular rhythm and No murmurs present (Cardio) RATE: regular rate RHYTHM: regular rhythm GI: COMMON NORMALS: Soft to palpation and No hepatosplenomegaly present A USCULTATION: Yes normoactive bowel sounds PALPATION: Yes Soft to palpation, No Tenderness to palpation present (GI), No Guarding due to palpation present (GI) and Yes No hepatosplenomegaly present : BLADDER/KIDNEY EXAM: Yes CVA tenderness Back/Pelvis: GENERAL BACK: Yes CVA tenderness CVA tenderness: left Extremity: COMMON NORMALS: normal to inspection, capillary refill normal, no clubbing, cyanosis or edema, no calf tenderness and no pedal edema Neuro: SENSORIUM/ORIENTATION: Yes oriented to person, Yes oriented to place and Yes oriented to time Skin: COMMON NORMALS: no rashes or lesions noted GENERAL SKIN EXAM: no rashes or lesions noted Course 2 Vital Signs: Vital signs: Vital Signs Temperature 97.8 F 05/19/23 09:27 Pulse Rate 77 05/19/23 09:59 Respiratory Rate 18 05/19/23 11:22 Blood Pressure 128/78 05/19/23 09:59 Pulse Oximetry 97 05/19/23 11:22 Oxygen Delivery Me thod Room Air 05/19/23 09:59 MDM - Abdominal Pain Medical Decision Making 5.4 mm proximal left ureteral stone. Discussed with the patient that this will have some ways to go give her pain medications antiemetics Flomax will have her strain her urine as well. Set her up for an outpatient follow-up with urology if pain is uncontrolled return pain is well-controlled at this time. Medical Records I reviewed the patient's medical records. Lab Data I reviewed the patient's lab results. 05/19/23 09:35 05/19/23 09:35 Labs/Radiology: Laboratory Results WBC 9.09 10^3/uL (3.29-11.43) 05/19/23 09:35 RBC 4.86 10^6/uL (3.85-5.65) 05/19/23 09:35 Hgb 14.40 g/dL (11.27-16.99) 05/19/23 09:35 Hct 41.0 % (36-47) 05/19/23 09:35 MCV 84.4 fl (85-98) L 05/19/23 09:35 MCH 29.6 pg (27-33) 05/19/23 09:35 MCHC 35.1 g/dL (30-55) 05/19/23 09:35 RDW 13.3 % (12.1-15.1) 05/19/23 09:35 Plt Count 291 10^3/cmm (157-399) 05/19/23 09:35 MPV 11.0 fL (7.4-10.4) H 05/19/23 09:35 Neut % (Auto) 66.4 % 05/19/23 09:35 Lymph % (Auto) 24.4 % 05/19/23 09:35 [place] % (Auto) 4.8 % 05/19/23 09:35 Eos % (Auto) 2.9 % 05/19/23 09:35 Baso % (Auto) 0.8 % 05/19/23 09:35 Neut # (Auto) 6.04 10^3/uL (1.8-7.7) 05/19/23 09:35 Lymph # (Auto) 2.2 10^3/uL (0.8-4.8) 05/19/23 09:35 [place] # (Auto) 0.4 10^3/uL (0.2-0.9) 05/19/23 09:35 Eos # (Auto) 0.3 10^3/uL (0.0-0.8) 05/19/23 09:35 Baso # (Auto) 0.1 10^3/uL (0.0-0.1) 05/19/23 09:35 Nucleated RBC % (auto) 0 % 05/19/23 09:35 Nucleated RBCs # 0.0 /100WBC 05/19/23 09:35 Sodium 140 mmol/L (136-145) 05/19/23 09:35 Potassium 4.1 mmol/L (3.5-5.1) 05/19/23 09:35 Chloride 104 mmol/L (98-107) 05/19/23 09:35 Carbon Dioxide 23 mmol/L (22-29) 05/19/23 09:35 Anion Gap 17.1 (5-19) 05/19/23 09:35 BUN 9 mg/dL (6-20) 05/19/23 09:35 Creatinine 0.8 mg/dL (0.5-0.9) 05/19/23 09:35 GFR Calculation 81.2 mL/min (90-130) L 05/19/23 09:35 Glucose 119 mg/dL (65-115) H 05/19/23 09:35 Calculated Osmolality 290 mOsm/kg (285-295) 05/19/23 09:35 Calcium 8.9 mg/dL (8.5-10.5) 05/19/23 09:35 Total Bilirubin 0.3 mg/dL (0.15-1.2) 05/19/23 09:35 AST 17 U/L (0-32) 05/19/23 09:35 ALT 19 U/L (0-33) 05/19/23 09:35 Alkaline Phosphatase 82 U/L (35-105) 05/19/23 09:35 Total Protein 7.0 g/dL (6.6-8.7) 05/19/23 09:35 Albumin 3.7 g/dL (3.5-5.2) 05/19/23 09:35 Globulin 3.3 g/dL (1.3-4.6) 05/19/23 09:35 Urine Color Yellow (Yellow) 05/19/23 10:50 Urine Appearance Clear (CLEAR) 05/19/23 10:50 Urine pH 7 (5-7) 05/19/23 10:50 Ur Specific [place] 1.005 (1.005-1.030) 05/19/23 10:50 Urine Protein Neg (Negative) 05/19/23 10:50 Urine Glucose (UA) Norm (Normal) 05/19/23 10:50 Urine Ketones Negative (Negative) 05/19/23 10:50 Urine Blood 3+ (Negative) H 05/19/23 10:50 Urine Nitrate Negative (Negative) 05/19/23 10:50 Urine Bilirubin Neg (Negative) 05/19/23 10:50 Urine Urobilinogen Neg mg/dL (Negative) 05/19/23 10:50 Ur Leukocyte Esterase Negative (Negative) 05/19/23 10:50 Urine RBC 5-10 /hpf (0-2) H 05/19/23 10:50 Urine WBC 0-4 /hpf (0-5) H 05/19/23 10:50 Ur Squamous Epith Cells 0-4 /hpf (0-5) H 05/19/23 10:50 Ur Transition Epith Cell 0-4 /hpf 05/19/23 10:50 Amorphous Sediment Not Reportable 05/19/23 10:50 Urine Bacteria 1+ /hpf (NONE) H 05/19/23 10:50 Urine Mucus Trace /hpf 05/19/23 10:50 All radiology interpretation(s) finalized by discharge Discharge Plan Discharge Patient Disposition: Home Clinical Impression: Calculus of kidney Condition: Stable Prescriptions: New hydrocodone-acetaminophen 5-325 mg tablet 1 tab PO Q6H PRN (Reason: pain) Qty: 25 0RF ondansetron HCl 4 mg tablet 4 mg PO Q6H PRN (Reason: nausea and vomiting) Qty: 20 0RF Flomax 0.4 mg capsule 0.4 mg PO DAILY Qty: 20 0RF Flomax 0.4 mg capsule 0.4 mg PO DAILY Qty: 20 0RF Discharge Orders: Discharge ED (Routine); Ordered 05/19/23 Ordered By: Fredi Villatoro Referrals: Carlos Hayes MD [Primary Care Provider] - Discharge Diet: Usual diet Discharge Activity: Increase activity as tolerated Patient Instructions: Kidney Stones (ED), Opioid Safety, Pain Management Activity Restrictions/Additional Instructions: Thank you for choosing [facility] for your healthcare needs today. Please realize this is an emergency room and that we are providing you with a medical screening exam and this may not be complete and all inclusive of all the testing and or work up that you may need to determine your ailment or severity of your illness. It is very important that you follow up as instructed or that you return to the Emergency Department should you have concerns or if your condition changes or worsens in any way. Coding Level of Care Code ED Education Department Registrar for Fallon Addison
--- NOTE | 2023-05-19 09:42 | CT_ITS ---
WS: [id number] CT ABDOMEN AND PELVIS NONCONTRAST HISTORY: flank pain TECHNIQUE: Imaging performed through the abdomen and pelvis. Coronal and sagittal reformats are submi tted. All CT scans at [facility] use at least one of these dose optimization techniques: auto mated exposure control; mA and/or kV adjustment per patient size (includes targeted exams where dose is matched to clinical indication); or iterative reconstruction. DLP: 1044.32 mGy COMPARISON: 08/10/2013 Lower thorax: Lung bases are clear. Visualized heart is normal. No hiatal hernia. Liver: Normal size liver. No mass or bile duct dilatation. Gallbladder: Prior cholecystectomy. Pancreas: Normal size and attenuation. Normal pancreatic duct. No pancreatitis or mass. Spleen: Normal. Adrenal glands: Normal. No mass. Right kidney: Normal size kidney with no mass or hydronephrosis. Left kidney: Normal sized LEFT kidney. There is slight prominence of the LEFT renal pelvis. 5.4 mm ca lcification at the LEFT UP junction. No additional calcifications. Aorta: Normal abdominal aorta, no aneurysm or atherosclerosis. No free fluid, intraperitoneal air or significant lymphadenopathy. GI tract: Normal noncontrast imaging of the stomach, small bowel and colon. No obstruction or wall th ickening. Normal appendix. Abdominal wall: Small umbilical hernia contains fat only. Pelvis: Prior hysterectomy. No adenopathy or free fluid. Both ovaries are identified. Negative urinar y bladder. Osseous structures: Bilateral L5 pars defects. IMPRESSION: 1. Minimal LEFT renal pelvis dilatation secondary to a 5.4 mm calcification at the UP junction. 2. Prior cholecystectomy and hysterectomy.
[2023-05-19 09:45] VITALS: RESP 18; O2SAT 97
[2023-05-19] MEDS: ondansetron 2 mg/ML SDV 2 mL 4 MG IVP (09:45)
[2023-05-19] MEDS: morphine 4 mg/mL SDV 1 mL IVP ×2 (09:45→11:22)
[2023-05-19 09:54] LABS: Basophils # 0.1 10^3/uL (0.0-0.1); Basophils % 0.8 %; Eosinophils # 0.3 10^3/uL (0.0-0.8); Eosinophils % 2.9 %; Lymphocytes # 2.2 10^3/uL (0.8-4.8); Lymphocytes % 24.4 %; Mean Corpuscular HGB Conc 35.1 g/dL (30-55); Mean Corpuscular Hemoglobin 29.6 pg (27-33); Mean Corpuscular Volume 84.4 fl (85-98); Monocytes # 0.4 10^3/uL (0.2-0.9); Monocytes % 4.8 %; Neutrophils # 6.04 10^3/uL (1.8-7.7); Neutrophils % 66.4 %; Nucleated Red Blood Cells % 0 %; Platelet Count 291 10^3/cmm (157-399); Red Blood Count 4.86 10^6/uL (3.85-5.65); Red Cell Distribution Width 13.3 % (12.1-15.1); White Blood Count 9.09 10^3/uL (3.29-11.43)
[2023-05-19 09:59] VITALS: BP 128/78; PULSE 77; RESP 16; O2SAT 98
[2023-05-19 10:06] LABS: Alanine Aminotransferase 19 U/L (0-33); Albumin Level 3.7 g/dL (3.5-5.2); Alkaline Phosphatase 82 U/L (35-105); Aspartate Amino Transferase 17 U/L (0-32); Blood Urea Nitrogen 9 mg/dL (6-20); Calcium 8.9 mg/dL (8.5-10.5); Carbon Dioxide 23 mmol/L (22-29); Chloride 104 mmol/L (98-107); Creatinine Clr Calc Pharmacy 121.4346; Globulin 3.3 g/dL (1.3-4.6); Glomerular Filtration Rate 81.2 mL/min (90-130); Glucose 119 mg/dL (65-115); Osmolality Calculated 290 mOsm/kg (285-295); Sodium 140 mmol/L (136-145); Total Bilirubin 0.3 mg/dL (0.15-1.2)
[2023-05-19 10:07] LABS: Anion Gap 17.1 (5-19); Potassium 4.1 mmol/L (3.5-5.1)
[2023-05-19 11:12] LABS: Add Urine Microscopic? YES; Bilirubin Urine Neg (Negative); Blood Urine 3+ (Negative); Glucose Urine UA Norm (Normal); Ketones Urine Negative (Negative); Leukocyte Esterase Urine Negative (Negative); Nitrate Urine Negative (Negative); Protein Urine Neg (Negative); Specific Gravity, Urine 1.005 (1.005-1.030); Urine Appearance Clear (CLEAR); Urine Color Yellow (Yellow); Urobilinogen Urine Neg (Negative); pH Urine 7 (5-7)
[2023-05-19 11:14] LABS: Bacteria Urine 1+ /hpf; Mucus Urine TRACE /hpf; Squamous Epithelial Cell Urine 0-4 /hpf (0-5); Transitional Epi Cells Urine 0-4 /hpf; WBC Urine 0-4 /hpf (0-5)
[2023-05-19 11:15] LABS: Add Urine Culture? No
[2023-05-19 11:22] VITALS: RESP 18; O2SAT 97
[2023-05-19 11:59] VITALS: BP 158/81
--- NOTE | 2023-05-20 15:46 | DCPLANNER ---
Sent to [facility] urology - [phone]
== END 2023-05-19 12:14 | disposition home or self-care (01) ==
PROVIDERS: Emergency Provider Family Medicine; PCP Family Medicine
DX: N20.0 Calculus of kidney (principal)
CPT/HCPCS: 74176; 80053; 81001; 85025; 96374; 96375; 99285; J2270; J2405; J7030

== ENCOUNTER 2024-08-16 11:30 | Emergency (ER) | payer OTHER, SELFPAY ==
[2024-08-16] VITALS (20 sets, daily range): BP systolic 97–132; BP diastolic 51–90; PULSE 67–85; RESP 10–30; TEMP 36.9; O2SAT 97–100
--- NOTE | 2024-08-16 12:09 | ED_ITS ---
HPI - Chest Pain 2 General: Chief Complaint: Chest Pain Stated Complaint: cp Time Seen by Provider: 08/16/24 12:02 Source: patient Mode of arrival: ambulatory Limitations: no limitations History of Present Illness: Patient is a 38-year-old female presents to ED today with complaint of left- sided chest pain that she awoke with around 3 AM this morning. She states she has had multiple episodes of brief (lasting seconds) sharp shooting pain to her left chest. Denies alleviating or worsening factors. It does not seem to be exacerbated by movement, exertion, or eating. She does have a history of acid reflux. She is not complaining of shortness of breath or difficulty breathing. No recent surgeries. No known cardiac or pulmonary history. No recent illness. MD complaint: chest pain Onset (ago): hour(s) Timing of current episode: episodic Onset: during rest Pain location: left chest Pain radiation: none Quality: sharp and shooting Relieving factors: nothing Exacerbating factors: nothing Associated symptoms: Deny abdominal pain, dyspnea, fever(s), nausea, palpitations, syncope or vomiting Treatment prior to arrival: none Risk Factors: Coronary artery disease risk factors: none Thoracic aortic dissection risk factors: none Related Data Home Medications ?Medication ?Instructions ?Recorded ?Confirmed semaglutide (weight loss) 1 mg/0.5 47 mg SUBCUT Q7D 08/16/24 mL subcutaneous pen injector Allergies Allergy/AdvReac Type Severity Reaction Status Date / Time No Known Allergies Allergy Verified 10/17/23 15:22 Review of Systems 2 Const: Denies: fever(s), chills, body aches, fatigue or malaise Eyes: Denies: change in vision or blurry vision Card: Reports: chest pain; Denies: palpitations, irregular heart rhythm, edema, swelling of feet/ankles, lightheadedness, syncope, pre-syncope, dyspnea on exertion, orthopnea, leg pain with exertion or acrocyanosis Resp: Denies: dyspnea, productive cough, non-productive cough, pain on inspiration or chest congestion GI: Reports: heartburn; Denies: abdominal pain, nausea, vomiting, hematemesis or diarrhea : Denies: flank pain or dysuria Musc: Denies: neck pain, back pain, extremity pain or joint pain Skin/Breast: Denies: rash Neuro: Denies: headache(s), numbness in extremities, weakness in extremities or sensory changes Psych: Denies: anxiety PFSH ED 2 PFSH: Medical History Mood changes Was placed on medication since January 2020 to help even out her moods and is doing well with this. Does not see a therapist and this is being managed by her primary care provider No pertinent past medical history Denies diabetes, asthma, hypertension, seizures, DVT/PE PCP: Dr. Hayes Surgical History Hx of hysterectomy 08/2022 - Cervix removed - Bladder sling done at the same time. S/P cholecystectomy Laparoscopic procedure in 2011 performed at [facility] – [place]. 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 Family History Grandmother Breast cancer paternal, diagnosed in her 50s Diabetes maternal and paternal Father Hypertension Mother Hypertension Hyperlipidemia Thyroid cancer Denies family history of Colon cancer Ovarian cancer Heart disease Uterine cancer Thyroid disease Stroke Social History Smoking and tobacco/nicotine status: never used tobacco/nicotine Alcohol intake: never Substance/Drug Use: never Physical Exam 2 Const: COMMON NORMALS: no acute distress, average body habitus, patient oriented x3, no limitations, healthy appearing, alert and well nourished G ENERAL APPEARANCE: cooperative ORIENTATION/CONSCIOUSNESS: Yes awake, Yes oriented to person, Yes oriented to place and Yes oriented to time HENMT: COMMON NORMALS: normocephalic and atraumatic HEAD & SCALP: normal to inspection, normocephalic and atraumatic Neck/C-Spine: COMMON NORMALS: full ROM, no lymphadenopathy, supple and no meningeal signs Chest: COMMONS NORMALS: normal inspection of the chest and normal palpation of entire chest wall Resp: COMMON NORMALS: normal respiratory effort and clear to auscultation bilaterally AUSCULTATION: clear to auscultation bilaterally Cardio: COMMON NORMALS: regular rate and regular rhythm RATE: regular rate RHYTHM: regular rhythm GI: COMMON NORMALS: Normal to inspection, nondistended, normoactive bowel sounds present, Soft to palpation, No hepatosplenomegaly present and no masses INSPECTION: Yes normal to inspection AUSCULTATION: Yes normoactive bowel sounds PALPATION: Yes Soft to palpation, Yes Tenderness to palpation present (GI) (epigastric), No Guarding due to palpation present (GI), No Rigid due to palpation and Yes No hepatosplenomegaly present : COMMON NORMALS: Yes no CVA tenderness BLADDER/KIDNEY EXAM: Yes no CVA tenderness Back/Pelvis: COMMON NORMALS: no CVA tenderness and thoracic and lumbar spine normal to inspection Extremity: COMMON NORMALS: normal to inspection, capillary refill normal, no clubbing, cyanosis or edema, no calf tenderness and no pedal edema GENERAL: Y es normal exam except as noted Neuro: COMMON NORMALS: patient oriented x3, moves all extremities, no focal motor deficits and no sensory deficits noted SENSORIUM/ORIENTATION: Yes alert, Yes oriented to person, Yes oriented to place and Yes oriented to time MENINGEAL SIGNS: Yes no meningeal signs Skin: COMMON NORMALS: no rashes or lesions noted GENERAL SKIN EXAM: no rashes or lesions noted Course 2 Vital Signs: Vital signs: Vital Signs Temperature 98.4 F 08/16/24 11:56 Pulse Rate 75 08/16/24 12:15 Respiratory Rate 16 08/16/24 12:15 Blood Pressure 132/90 08/16/24 12:15 Pulse Oximetry 99 08/16/24 12:15 Oxygen Delivery Me thod Room Air 08/16/24 11:56 MDM - Chest Pain Medical Decision Making Patient clinically appears no acute distress. Her vital signs are stable. Blood work including CBC, CMP, baseline troponin, D-dimer are all unremarkable. Her CXR showing no acute findings. Her EKG is nonischemic. DDx includes acid reflux, chest wall pain, costochondritis. Patient will be allowed discharge with recommendations to follow-up with primary care. Return ED precautions discussed. Medical Records I reviewed the patient's medical records. Lab Data I reviewed the patient's lab results. 08/16/24 12:16 08/16/24 12:16 Laboratory Results WBC 6.75 10^3/uL (3.29-11.43) 08/16/24 12:16 RBC 4.81 10^6/uL (3.85-5.65) 08/16/24 12:16 Hgb 14.80 g/dL (11.27-16.99) 08/16/24 12:16 Hct 41.9 % (36-47) 08/16/24 12:16 MCV 87.1 fl (85-98) 08/16/24 12:16 MCH 30.8 pg (27-33) 08/16/24 12:16 MCHC 35.3 g/dL (30-55) 08/16/24 12:16 RDW 12.7 % (12.1-15.1) 08/16/24 12:16 Plt Count 313 10^3/cmm (157-399) 08/16/24 12:16 MPV 10.8 fL (7.4-10.4) H 08/16/24 12:16 Neut % (Auto) 60.7 % 08/16/24 12:16 Lymph % (Auto) 30.4 % 08/16/24 12:16 [place] % (Auto) 5.3 % 08/16/24 12:16 Eos % (Auto) 2.5 % 08/16/24 12:16 Baso % (Auto) 0.7 % 08/16/24 12:16 Neut # (Auto) 4.09 10^3/uL (1.8-7.7) 08/16/24 12:16 Lymph # (Auto) 2.1 10^3/uL (0.8-4.8) 08/16/24 12:16 [place] # (Auto) 0.4 10^3/uL (0.2-0.9) 08/16/24 12:16 Eos # (Auto) 0.2 10^3/uL (0.0-0.8) 08/16/24 12:16 Baso # (Auto) 0.1 10^3/uL (0.0-0.1) 08/16/24 12:16 Nucleated RBC % (auto) 0 % 08/16/24 12:16 Nucleated RBCs # 0.0 /100WBC 08/16/24 12:16 D-Dimer 0.43 ug/mLFEU (0-0.59) 08/16/24 12:16 Sodium 137 mmol/L (136-145) 08/16/24 12:16 Potassium 4.0 mmol/L (3.5-5.1) 08/16/24 12:16 Chloride 105 mmol/L (98-107) 08/16/24 12:16 Carbon Dioxide 24 mmol/L (22-29) 08/16/24 12:16 Anion Gap 12.0 (5-19) 08/16/24 12:16 BUN 8 mg/dL (6-20) 08/16/24 12:16 Creatinine 0.8 mg/dL (0.5-0.9) 08/16/24 12:16 GFR Calculation 80.7 mL/min (90-130) L 08/16/24 12:16 Glucose 84 mg/dL (65-115) 08/16/24 12:16 Calculated Osmolality 282 mOsm/kg (285-295) L 08/16/24 12:16 Calcium 8.9 mg/dL (8.5-10.5) 08/16/24 12:16 Total Bilirubin 0.3 mg/dL (0.15-1.2) 08/16/24 12:16 AST 13 U/L (0-32) 08/16/24 12:16 ALT 11 U/L (0-33) 08/16/24 12:16 Alkaline Phosphatase 84 U/L (35-105) 08/16/24 12:16 Troponin T Baseline < 6 ng/L (0-10) 08/16/24 12:16 Total Protein 6.9 g/dL (6.6-8.7) 08/16/24 12:16 Albumin 3.8 g/dL (3.5-5.2) 08/16/24 12:16 Globulin 3.1 g/dL (1.3-4.6) 08/16/24 12:16 XR interpretation done by ED provider, pending radiology final review Discharge Plan Discharge Patient Disposition: Home Clinical Impression: Acute chest wall pain Condition: Stable Prescriptions: No Action No Known Home Medications Discharge Orders: Discharge ED (Routine); Ordered 08/16/24 Ordered By: Nakia Harrington Referrals: Carlos Hayes MD [Primary Care Provider, Family Practice] Patient Instructions: Noncardiac Chest Pain (ED) Activity Restrictions/Additional Instructions: As we discussed, your emergency workup here was unremarkable. Please follow-up with primary care next week if symptoms persist. You may return to the emergency department at anytime for any further concerns you may have. Print Language: Estonian Coding Level of Care Code ED Bone Plant Supervisor for Fallon Addison
--- NOTE | 2024-08-16 12:10 | ECG_ITS ---
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 Measurements Intervals [place] Rate: 83 P: 63 MI: 135 QRS: 37 QRSD: 70 T: 40 QT: 339 QTc: 400 Interpretive Statements SINUS RHYTHM LOW QRS VOLTAGE IN PRECORDIAL LEADS [QRS DEFLECTION < 1.0 mV IN CHEST LEADS] Non diagnostic T wave changes Compared to ECG 05/02/2022 08:44:02 Low QRS voltage now present Electronically Signed On 08-18-2024 22:23:45 CDT by Shavonne Talamantes M.D. [id number]
--- NOTE | 2024-08-16 12:10 | XRR_ITS ---
PROCEDURE INFORMATION: Exam: XR Chest Exam date and time: 08/16/2024 12:14 PM Age: 38 years old Clinical indication: Pain; Other: Chest; Additional info: Chest pain TECHNIQUE: Imaging protocol: Radiologic exam of the chest. Views: 1 view. COMPARISON: CR XR chest 1V portable [id number] 05/02/2022 8:49 AM FINDINGS: Tubes, catheters and devices: None. Lungs: The lungs appear clear. Pleural spaces: No pleural effusion. No pneumothorax. Heart/Mediastinum: Mediastinum and fortino appear unremarkable. Bones/joints: No acute bony abnormality identified. XR/XR chest 1V portable [id number] IMPRESSION: No evidence for an acute cardiopulmonary process.
[2024-08-16 12:26] LABS: Basophils # 0.1 10^3/uL (0.0-0.1); Basophils % 0.7 %; Eosinophils # 0.2 10^3/uL (0.0-0.8); Eosinophils % 2.5 %; Hematocrit 41.9 % (36-47); Lymphocytes # 2.1 10^3/uL (0.8-4.8); Lymphocytes % 30.4 %; Mean Corpuscular HGB Conc 35.3 g/dL (30-55); Mean Corpuscular Hemoglobin 30.8 pg (27-33); Mean Corpuscular Volume 87.1 fl (85-98); Mean Platelet Volume 10.8 fL (7.4-10.4); Monocytes # 0.4 10^3/uL (0.2-0.9); Monocytes % 5.3 %; Neutrophils # 4.09 10^3/uL (1.8-7.7); Neutrophils % 60.7 %; Nucleated Red Blood Cells % 0 %; Platelet Count 313 10^3/cmm (157-399); Red Blood Count 4.81 10^6/uL (3.85-5.65); Red Cell Distribution Width 12.7 % (12.1-15.1); White Blood Count 6.75 10^3/uL (3.29-11.43)
[2024-08-16 12:41] LABS: D Dimer 0.43 ug/mLFEU (0-0.59)
[2024-08-16 12:46] LABS: Troponin(5th) Baseline < 6 ng/L (0-10)
[2024-08-16 12:48] LABS: Alanine Aminotransferase 11 U/L (0-33); Albumin Level 3.8 g/dL (3.5-5.2); Alkaline Phosphatase 84 U/L (35-105); Aspartate Amino Transferase 13 U/L (0-32); Blood Urea Nitrogen 8 mg/dL (6-20); Calcium 8.9 mg/dL (8.5-10.5); Carbon Dioxide 24 mmol/L (22-29); Chloride 105 mmol/L (98-107); Creatinine Clr Calc Pharmacy 101.5142; Globulin 3.1 g/dL (1.3-4.6); Glomerular Filtration Rate 80.7 mL/min (90-130); Glucose 84 mg/dL (65-115); Osmolality Calculated 282 mOsm/kg (285-295); Sodium 137 mmol/L (136-145); Total Bilirubin 0.3 mg/dL (0.15-1.2); Total Protein 6.9 g/dL (6.6-8.7)
== END 2024-08-16 13:45 | disposition home or self-care (01) ==
PROVIDERS: Emergency Provider Physician Assistant; PCP Family Medicine
DX: R07.89 Other chest pain (principal); Z79.85 Long-term (current) use of injectable non-insulin antidiabetic drugs
CPT/HCPCS: 36415; 71045; 80053; 84484; 85025; 85378; 93005; 99285

== ENCOUNTER → 2024-11-01 15:53 | Outpatient (BNVA) | payer OTHER, SELFPAY | PROVIDERS: PCP Family Medicine; Visit Provider Nurse Practitioner Women's Health | DX: Z01.419 Encounter for gynecological examination (general) (routine) without abnormal findings (principal) | CPT/HCPCS: 80053; 82306; 83036; 84443; 85025 ==